=== PATIENT | female | born 2000 | race Two or more races ===

== ENCOUNTER 2020-05-19 02:19 | Emergency (ER) | payer OTHER ==
[~2020-05-19] VITALS: Ht 165.1 cm; Wt 90.9 kg
[2020-05-19 02:48] LABS: BILIRUBIN,URINE NEGATIVE (NEG); CLARITY,URINE CLEAR; COLOR,URINE YELLOW; NITRITE,URINE NEGATIVE (NEG); PROTEIN,URINE NEGATIVE (NEG-TRACE); UROBILINOGEN,URINE 0.2 mg/dL (0.2 mg/dL)
[2020-05-19 02:51] LABS: BASO # 0.1 x10^3/uL (0.0-0.2); BASO % 1 % (0-3); EOS # 0.3 x10^3/uL (0.0-0.7); EOS % 3 % (0-3); HEMOGLOBIN 11.4 g/dL (12.0-15.5); LYMPH # 4.5 x10^3/uL (1.0-4.8); LYMPH % 35 % (24-48); MEAN CORPUSCULAR HEMOGLOBIN 25 pg (25-35); MEAN CORPUSCULAR HGB CONC 33 g/dL (31-37); MEAN CORPUSCULAR VOLUME 76 fL (79-100); MONO # 0.7 x10^3/uL (0.0-1.1); MONO % 5 % (0-9); NEUT # 7.1 x10^3/uL (1.8-7.7); NEUT % 56 % (31-73); PLATELET COUNT 437 x10^3/uL (140-400); RED BLOOD COUNT 4.61 x10^6/uL (3.50-5.40); RED CELL DISTRIBUTION WIDTH 16.1 % (11.5-14.5); WHITE BLOOD COUNT 12.7 x10^3/uL (4.0-11.0)
--- NOTE | 2020-05-19 02:58 | PHYS DOC ---
Past Medical History Past Medical History: No Pertinent History Past Surgical History: Additional Past Surgical Histo: D&C X 2 Smoking Status: Never Smoker Alcohol Use: None General Adult EDM: Chief Complaint: DIZZY/LIGHT HEADED HPI: HPI: Patient is a 20 year old female is approximately 5 weeks presents with the chief complaint of dizziness, right flank pain and pelvic pain. Patients states not feeling prior to arrival. states patient collapsed and was confused for 30 minutes. Patient had not LOC. No seizure like activity. Patient denies any vaginal bleeding or discharge. Review of Systems: Review of Systems: Constitutional: Denies fever or chills. [] Eyes: Denies change in visual acuity. [] HENT: Denies nasal congestion or sore throat. [] Respiratory: Denies cough or shortness of breath. [] Cardiovascular: Denies chest pain or edema. [] GI: Positive abdominal pain,no nausea, vomiting, bloody stools or diarrhea. [] : Denies dysuria. [] Musculoskeletal: Denies back pain or joint pain. [] Integument: Denies rash. [] Neurologic: Denies headache, focal weakness or sensory changes. [Positive dizziness] Endocrine: Denies polyuria or polydipsia. [] Lymphatic: Denies swollen glands. [] Psychiatric: Denies depression or anxiety. [] Heart Score: C/O Chest Pain: No Risk Factors: Risk Factors: DM, Current or recent (<one month) smoker, HTN, HLP, family history of CAD, obesity. Risk Scores: Score 0 - 3: 2.5% MACE over next 6 weeks - Discharge Home Score 4 - 6: 20.3% MACE over next 6 weeks - Admit for Clinical Observation Score 7 - 10: 72.7% MACE over next 6 weeks - Early Invasive Strategies Current Medications: Current Medications Medications (Trade) Dose Ordered Sig/Nguyễn Start Time Stop Time Status Last Admin Dose Admin Sodium Chloride 1,000 ml @ 1,000 mls/hr 1X ONCE 05/19/20 03:00 05/19/20 03:59 Allergies: Allergies: Allergies Coded Allergies Type Severity Reaction Last Updated Verified Penicillins Allergy Intermediate 05/19/20 Yes Physical Exam: PE: Constitutional: Well developed, well nourished, no acute distress, non-toxic appearance. [] HENT: Normocephalic, atraumatic, bilateral external ears normal, oropharynx moist, no oral exudates, nose normal. [] Eyes: PERRLA, EOMI, conjunctiva normal, no discharge. [] Neck: Normal range of motion, no tenderness, supple, no stridor. [] Cardiovascular:Heart rate regular rhythm, no murmur [] Lungs & Thorax: Bilateral breath sounds clear to auscultation [] Abdomen: Bowel sounds normal, soft, no tenderness, no masses, no pulsatile masses. [] Skin: Warm, dry, no erythema, no rash. [] Back: No tenderness, no CVA tenderness. [] Extremities: No tenderness, no cyanosis, no clubbing, ROM intact, no edema. [] Neurologic: Alert and oriented X 3, normal motor function, normal sensory function, no focal deficits noted. [] Psychologic: Affect normal, judgement normal, mood normal. [] Current Patient Data: Labs: Laboratory Tests Test 05/19/20 02:25 POC Urine HCG, Qualitative Hcg positive (Negative) Vital Signs: Vital Signs Date Time Temp Pulse Resp B/P (MAP) Pulse Ox O2 Delivery O2 Flow Rate FiO2 05/19/20 02:22 98.7 70 20 129/68 (88) 100 Room Air 98.7 EKG: EKG: [] Radiology/Procedures: Radiology/Procedures: [] Impression: Obstetric ultrasound less than 14 weeks: Reason for examination: Cramping. Pelvic pain. Transvaginal ultrasound examination of the pelvis was performed. Uterus measures 7.1 x 6.3 x 5.9 cm in greatest dimension and shows no focal mass. Intrauterine gestation is present with a crown-rump length of 4.3 mm corresponding to gestational age of 6 weeks 1 day. Gestational sac has a normal contour. No subchorionic hemorrhage is evident. Cardiac activity is present with a rate of 77 bpm. The yolk sac is present. No free fluid is seen in the pelvis. The left ovary measures 3.2 x 2.4 x 2.3 cm in greatest dimension with good vascular flow. There is a 1.7 x 1.4 cm cyst within the left ovary consistent with probable corpus luteal cyst. The right ovary measures 2.4 x 1.5 x 1.4 cm in greatest dimension with good vascular flow. IMPRESSION: Single viable intrauterine gestation with mean gestational age estimated at 6 weeks 1 day with estimated date of confinement of 01/11/2021. 1.7 x 1.4 cm cyst in the left ovary probably representing a corpus luteal cyst. Electronically signed by: Silvia Panchal MD (05/19/2020 3:34 AM) [facility] Course & Med Decision Making: Course & Med Decision Making Pertinent Labs and Imaging studies reviewed. (See chart for details) [] Patient was evaluated for chief complaint. Work up consisted of laboratory analysis and radiologic imaging. Results reviewed and discussed with patient and . Ultrasound positive IUP approximately 6 weeks. Patient noted to have mildly elevated liver enzymes hCG greater than 3000. Liver enzymes mildly elevated. Patient's platelets higher than normal. Patients blood pressure stable. Treatment included IV fluids. Patient states she feels much better. Patient will be discharged home with instructions to follow-up with her OB on Tuesday. Harry Disclaimer: Harry Disclaimer: This electronic medical record was generated, in whole or in part, using a voice recognition dictation system. Departure Departure Impression: Primary Impression: Dizziness Additional Impressions: Elevated liver enzymes Disposition: DC HOME SELF CARE/HOMELESS Condition: STABLE Patient Instructions: Dizziness, KYLAH MYERS I DO May 19, 2020 02:58
[2020-05-19] MEDS ORDERED: IV NORMAL SALINE 1000ML BAG 1,000 ML IV ONE (03:00)
[2020-05-19 03:12] LABS: CALCIUM 8.7 mg/dL (8.5-10.1); CREATININE 0.9 mg/dL (0.6-1.0); GFR 78.3; POTASSIUM 3.5 mmol/L (3.5-5.1)
[2020-05-19 03:18] LABS: ALBUMIN 3.1 g/dL (3.4-5.0); ALBUMIN/GLOBULIN RATIO 0.7 (1.0-1.7); TOTAL BILIRUBIN 0.3 mg/dL (0.2-1.0); TOTAL PROTEIN 7.5 g/dL (6.4-8.2)
[2020-05-19 03:27] LABS: BACTERIA,URINE FEW /HPF (0-FEW); RBC,URINE OCC /HPF (0-2); WBC,URINE OCC /HPF (0-4)
--- NOTE | 2020-05-19 03:36 | RAD ---
Obstetric ultrasound less than 14 weeks: Reason for examination: Cramping. Pelvic pain. Transvaginal ultrasound examination of the pelvis was performed. Uterus measures 7.1 x 6.3 x 5.9 cm in greatest dimension and shows no focal mass. Intrauterine gestat ion is present with a crown-rump length of 4.3 mm corresponding to gestational age of 6 weeks 1 day. Gestational sac has a normal contour. No subchorionic hemorrhage is evident. Cardiac activity is pres ent with a rate of 77 bpm. The yolk sac is present. No free fluid is seen in the pelvis. The left ovary measures 3.2 x 2.4 x 2.3 cm in greatest dimension with good vascular flow. There is a 1.7 x 1.4 cm cyst within the left ovary consistent with probable corpus luteal cyst. The right ovary measures 2.4 x 1.5 x 1.4 cm in greatest dimension with good vascular flow. IMPRESSION: Single viable intrauterine gestation with mean gestational age estimated at 6 weeks 1 day with estima brennon date of confinement of 01/11/2021. 1.7 x 1.4 cm cyst in the left ovary probably representing a corpus luteal cyst. Electronically signed by: Silvia Panchal MD (05/19/2020 3:34 AM) [facility]
[2020-05-19 04:24] VITALS: BP 111/60
== END 2020-05-19 04:30 | disposition home or self-care (01) ==
LOC: ER 02:19
DX: O26.891 Other specified pregnancy related conditions, first trimester (principal); R42 Dizziness and giddiness; R10.2 Pelvic and perineal pain; R79.89 Other specified abnormal findings of blood chemistry; Z98.890 Other specified postprocedural states; Z88.0 Allergy status to penicillin; Z3A.01 Less than 8 weeks gestation of pregnancy
CPT/HCPCS: 36415; 76801; 80053; 81001; 81025; 84702; 85025; 96360; 99285; J7030